=== PATIENT | female | born 1995 | race Caucasian/White ===

== ENCOUNTER 2020-05-13 06:34 | Outpatient (NON) | payer OTHER, SELFPAY ==
[2020-05-13 17:51] LABS: SARS-CoV-2 RNA PCR Positive
== END 2020-05-13 06:35 ==
PROVIDERS: PCP Family Medicine; Visit Provider Family Medicine
DX: U07.1 COVID-19 (principal)
CPT/HCPCS: 87635; C9803; U0003

== ENCOUNTER 2023-04-21 16:38 | Emergency (ER) | payer OTHER, SELFPAY ==
[2023-04-21] VITALS (8 sets, daily range): BP systolic 103–114; BP diastolic 66–79; PULSE 70–92; RESP 12–21; TEMP 36.7; O2SAT 99–100
--- NOTE | 2023-04-21 19:00 | ED.GENADULT ---
HPI - General Adult General Chief complaint: Head Injury Stated complaint: head injury Wed Time Seen by Provider: 04/21/23 18:53 Source: patient Mode of arrival: ambulatory Limitations: no limitations History of Present Illness HPI narrative: this is a 27-year-old female who presents to the ED with chief complaint headache following head injury 3 days ago. she is unsure exactly what happened as she was with her parents and intoxicated while on vacation. She just returned yesterday evening from a trip to the [facility]. Reports that since yesterday she has also had an increase in nausea, vomiting and diarrhea. She states her boyfriend has had similar symptoms. She reports the initial head injury and blurry vision from injury has moderately improved with she has had since. Denies fevers, chills, urinary problems, chest pain, shortness of breath or cough. Denies any syncope. Related Data Home Medications Medication Instructions Recorded Confirmed spironolactone 100 mg tablet 100 mg PO DAILY 09/01/22 03/21/23 (Aldactone) levonorgestrel 14 mcg/24 hrs (3 1 device intrauterine ONCE 12/20/22 03/21/23 yrs) 13.5 mg intrauterine device (Snow) Allergies Allergy/AdvReac Type Severity Reaction Status Date / Time amoxicillin Allergy Unknown Unknown Verified 03/21/23 13:29 varicella virus vaccine live Allergy Unknown Skin Verified 03/21/23 13:29 Reaction Review of Systems Review of Systems: All systems as dictated in HPI [facility] Past Medical History Medical History Acne COVID-19 Obesity (BMI 30.0-34.9) Surgical History Surgical History History of foot surgery History of tonsillectomy [place] teeth extracted Family History Family History Grandparent Family history of pancreatic cancer Mother Family history of multiple sclerosis Social History Social History Smoking status: Never smoker Second hand tobacco smoke exposure: No Alcohol intake: current Drinks per week: 15 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 Substance use: current Substance use type: marijuana Lack of Transportation: No Lack of Food: Never True Current Housing: I Have Housing Concerned About Future Housing: No Difficulty Paying Gas/Electric Bills: No Difficulty Paying for Meds: No Currently Unemployed: No Education: Associate Degree Difficulty w/ Childcare or Family Care: No Living arrangements: alone Occupation/Education: occupation Additional occupation/education comments: [employer] Gender identity (if verbalized by the patient): Female Sexual Orientation (if Verbalized by the Patient): Straight or Heterosexual Spiritual care concerns: No Exam Narrative: GENERAL: Well-appearing, well-nourished, and in no acute distress. HEAD: Normocephalic, atraumatic. EYES: PERRLA and EOMI. ENT: Nares clear, no rhinorrhea or epistaxis. Mucous membranes moist. Oropharynx without tonsillar hypertrophy exudate or other lesions. NECK: Supple. No adenopathy or masses. CHEST: No respiratory distress. Clear to auscultation. No wheezes rales or rhonchi HEART: Regular rate and rhythm. No murmur heard. Normal peripheral pulses. ABDOMEN: Soft, nontender, nondistended, normal active bowel sounds. MSK: Normal range of motion. No edema. SKIN: Warm, dry, no rash. NEURO: Alert and oriented x4. No focal deficits. PSYCH: Normal mood and affect. Course Vital Signs Vital signs: Vital Signs Temperature 98.1 F 04/21/23 16:49 Pulse Rate 80 04/21/23 16:49 Respiratory Rate 18 04/21/23 16:49 Blood Pressure 114/67 04/21/23 16:49 Pulse Oximetry 100 04/21/23 16:49 Oxygen Delivery Room Air 04/21/23 16:49 Temperature 98.1 F 04/21/23 16:49 Pulse Rate 76 12/0
[2023-04-21] MEDS: SODIUM CHLORIDE 0.9% IV 1,000 ML 999 ML IV CONT (19:15)
[2023-04-21] MEDS: KETOROLAC 15 MG/ML VIAL (*BKC) IV PUSH (19:15)
[2023-04-21 19:23] LABS: Basophils Percent Auto 0.2 % (0.2-1.2); Eosinophils Percent Auto 0.3 % (0-4.4); Hematocrit 38.6 % (37.0-47.0); Hemoglobin 12.9 g/dL (12.0-15.0); Immature Granulocyte Absolute 0.03 K/mm3 (0.00-0.031); Immature Granulocyte Percent A 0.2 % (0-0.5); Lymphocytes Absolute Auto 1.97 K/mm3 (0.9-3.2); Lymphocytes Percent Auto 15.9 % (18.3-44.2); Mean Corpuscular HGB Conc 33.4 g/dl (32-36); Mean Corpuscular Hemoglobin 31.2 pg (26-34); Mean Corpuscular Volume 93.5 fl (80-100); Mean Platelet Volume 9.5 fl (7.4-10.4); Monocytes Absolute Auto 0.7 K/mm3 (0.1-0.6); Monocytes Percent Auto 5.4 % (2.6-8.5); Neutrophils Absolute Auto 9.6 K/mm3 (1.3-6.7); Platelet Count Result 198 k/mm3 (150-375); Red Blood Count 4.13 M/mm3 (4.2-5.4); Red Cell Distribution Width 12.1 % (11.5-14.5); White Blood Count 12.4 K/mm3 (4.5-10.0)
[2023-04-21 19:40] LABS: Alanine Aminotransferase 17 U/L (6-35); Albumin Level 4.2 g/dL (3.5-5.1); Alkaline Phosphatase 81 U/L (38-126); Anion Gap 10 mmol/L (8-16); Aspartate Amino Transferase 29 U/L (14-36); Bilirubin,Total 0.6 mg/dL (0.2-1.3); Blood Urea Nitrogen 11 mg/dL (7-17); Calcium 8.8 mg/dL (8.4-10.2); Carbon Dioxide 24 mmol/L (22-30); Chloride 102 mmol/L (98-107); Estimated CRCL calculation 122 ml/min; Estimated Glomerular Filt Rate > 60; Glucose 88 mg/dL (65-110); Potassium 3.9 mmol/L (3.4-5.0); Sodium 136 mmol/L (137-145)
--- NOTE | 2023-04-21 19:43 | PC.NURSE ---
This RN assumed care of patient. This RN took patient report from ALLI Kraus
== END 2023-04-21 20:24 | disposition home or self-care (01) ==
PROVIDERS: Emergency Provider Physician Assistant; PCP Family Medicine
DX: S09.90XA Unspecified injury of head, initial encounter (principal); A09 Infectious gastroenteritis and colitis, unspecified; E66.9 Obesity, unspecified; Z68.31 Body mass index [BMI] 31.0-31.9, adult; Z86.16 Personal history of COVID-19; X58.XXXA Exposure to other specified factors, initial encounter
CPT/HCPCS: 36415; 80053; 85025; 96361; 96374; 99284; J1885; J7030

== ENCOUNTER 2025-04-13 15:23 | Outpatient (CLI) | payer OTHER, SELFPAY ==
--- OUTSIDE RECORDS SUMMARY | 2025-04-13 18:05 | XMS_ITS | Clinical Summary ---
Author Organization [facility] Address [address] [place] [address] Care Team Providers Care Account Planner Name Role Phone Zac Joy MD Primary Care Provider [phone] Allergies Active Allergy Reactions Criticality Noted Date Comments Penicillins Unknown as a child Medications ADDERALL XR 10 mg 24 hr capsule TK ONE C PO QAM UPON AWAKENING; hold day for surgery 0 09/03/2018 Active montelukast (SINGULAIR) 10 mg tablet Take 1 tablet (10 mg total) by mouth daily as needed Active spironolactone (ALDACTONE) 100 mg tablet Take 1 tablet (100 mg total) by mouth daily 02/26/2023 Active azithromycin (ZITHROMAX) 250 mg tablet Take 2 tabs (500 mg) by mouth today, than 1 tab (250 mg) daily for 4 days. 6 tablet 03/07/2023 Active Active Problems Problem Noted Date Diagnosed Date Focal nodular hyperplasia of liver 11/13/2018 Abdominal pain 12/24/2014 Ovarian retention cyst 12/24/2014 Fatigue 10/15/2014 Liver mass 10/15/2014 Obesity 10/15/2014 Surgical History Surgery Date Site/Laterality Comments US ABDOMEN COMPLETE W LIVER DOPPLER (C) 11/13/2018 R ight APPENDECTOMY Medical History Medical History Date Comments Liver mass Benign, monitori ng ADHD (attention deficit hyperactivity disorder) ADD Social History Tobacco Use Types Packs/Day Years Used Date Smoking Tobacco: Never Smokeless Tobacco: Never Tobacco Cessation:Counseling Given: Yes Alcohol Use Standard Drinks/Week Comments No 0 (1 standard drink = 0.6 oz pur e alcohol) Comments Unknown Sex and Gender Information Value Date Recorded Sex Assigned at Not on file Legal Sex Female 5:48 AM 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[employer] Gender Identity Not on file Sexual Orientation Not on file Last Filed Vital Signs Vital Sign Reading Time Taken Comments Blood Pressure 92/68 03/07/2023 12:29 PM CDT Pulse 61 03/07/2023 12:29 PM CDT Temperature 36.6 C (97.8 F) 03/07/2023 12:29 PM CDT Respiratory Rate 20 03/07/2023 12:29 PM CDT Oxygen Saturation 98% 03/07/2023 12:29 PM CDT Inhaled Oxygen Concentration - - Weight 79.4 kg (175 lb) 03/07/2023 12:29 PM CDT Height 160 cm (5' 3) 03/07/2023 12:29 PM CDT Body Mass Index 31 03/07/2023 12:29 PM CDT Plan of Treatment Health Maintenance Due Date Last Done Comments Cervical Cancer Screening 1997 Depression Screening 1997 Hepatitis C Screening 1997 DTaP/Tdap/Td Vaccine (1 - Tdap) 2008 Varicella Vaccines (1 of 2 - 13+ 2-dose series) 2010 Hepatitis B Screening 11/29/2015 Regular Well Visit/Exam 18-64 11/29/2015 HPV Vaccines (1 - 3-dose SCD M series) 2024 Influenza Vaccine (#1) 2025 Pneumococcal vaccine <65 Aged Out No longer eligible based on patient's age to complete this topic Insurance [facility] CHOICE PLUS [facility] CHOICE PLUS [employer] Address: [address] [place] [address] Advance Directives For more information, please contact: [phone] Documents on File Type Date Recorded 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
--- OUTSIDE RECORDS SUMMARY | 2025-04-13 18:05 | XMS_ITS | Clinical Summary ---
Author Organization [facility] Address [address] [place] [id number] Care Team Providers Care Supervisor Respiratory Name Role Phone Unavailable Primary Care Provider Unavailabl e Social History Tobacco Use Types Packs/Day Years Used Date Smoking Tobacco: Never Assessed Comments Unknown Sex and Gender Information Value Date Recorded Sex Assigned at Not on file Legal Sex Female 8:18 PM CDT Gender Identity Not on file Sexual Orientation Not on file Plan of Treatment Health Maintenance Due Date Last Done Comments Cervical Cancer Screening Pa p Smear (Age 21 to 29) Every 3 Years 1997 Cervical Cancer Screening 1997 Annual Physical 2000 Hepatitis C 11/29/2015 DTaP, Tdap and Td Vaccines ( 1 - Tdap) 2016 Hepatitis B Vaccines (1 of 3 - 19+ 3-dose series) 2016 HPV Vaccines (1 - 3-dose SCD M series) 2024 COVID-19 Vaccine ( - 2024-2 6 season) 2025 Influenza Adult (#1) 2025 Hepatitis A Vaccines Aged Out No long er eligible based on patient's age to complete this topic Meningococcal B Vaccine Aged Out No l onger eligible based on patient's age to complete this topic Meningococcal Vaccine Aged Out No filomena jewell eligible based on patient's age to complete this topic Pneumococcal Vaccine: Pediat rics (0 to 5 Years) and At-Risk Patients (6 to 49 Years) Aged Out No longer eligible b ased on patient's age to complete this topic RSV Immunizations Under 20 Months Aged Out No longer eligible based on patient's age to complete this topic
[2025-04-14 13:09] LABS: Varicella-Zoster Ab, IgM <0.91 index (0.00-0.90)
== END 2025-04-13 15:24 | disposition home or self-care (01) ==
LOC: ANHGOSHLAB 15:26
PROVIDERS: PCP Family Medicine; Visit Provider Nurse Practitioner Family
DX: Z11.7 Encounter for testing for latent tuberculosis infection (principal)
CPT/HCPCS: 86480; 86787